=== PATIENT | male | born 2000 | race Caucasian/White ===

== ENCOUNTER 2020-11-02 11:41 | Emergency (ER) | payer MEDICAID ==
[~2020-11-02] VITALS: Ht 185.4 cm; Wt 99.8 kg
--- NOTE | 2020-11-02 11:56 | NUR ---
Patient to ER bed 3 to gown for evaluation. Side rails up. Report given to MAXIMUS Otoole.
[2020-11-02 11:57] VITALS: BP_SYST 155
--- NOTE | 2020-11-02 12:07 | NUR ---
Patient came to the ER with a complaint of pain from anus. The patient advised that the days prior, it would only hurt when using the restroom but today, it was bothering him and effecting his ability to ambulate. Patient has a raised and reddened area in the upper anus. Patient rated pain 6/10. Patient sitting in rney not presenting any signs of acute distress.
--- NOTE | 2020-11-02 12:25 | NUR ---
ER at bedside examining patient.
[2020-11-02] MEDS ORDERED: DOCU-144 PO (13:29)
[2020-11-02] MEDS ORDERED: AMOX-426 PO (13:30)
[2020-11-02] MEDS ORDERED: LIDOINT TP (13:33)
[2020-11-02 13:59] VITALS: BP_SYST 155
--- NOTE | 2020-11-02 14:00 | NUR ---
Patient given written and verbal discharge instructions and verbalizes understanding. ER MD discussed with patient the results and treatment provided. Patient in stable condition. ID arm band removed. Rx of Amoxicillin, colace, and lidocane ointment given. Patient educated on pain management and to follow up with PMD. Pain Scale 0/10. Opportunity for questions provided and answered. Medication side effect fact sheet provided.
== END 2020-11-02 14:00 | disposition home or self-care (01) ==
LOC: SED 11:41
DX: K61.0 Anal abscess (principal); Z79.899 Other long term (current) drug therapy
CPT/HCPCS: 99284